=== PATIENT | male | born 1975 | race Caucasian/White ===

== ENCOUNTER 2024-12-21 01:55 | Emergency (ER) | payer MEDICAID, SELFPAY ==
[2024-12-21] VITALS (35 sets, daily range): BP systolic 140–197; BP diastolic 86–132; PULSE 56–89; TEMP 36.5; O2SAT 93–100; BMI 37.2
--- NOTE | 2024-12-21 02:03 | ECG_ITS ---
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 Measurements Intervals [place] Rate: 71 P: 69 [place]: 160 QRS: 78 QRSD: 90 T: 70 QT: 402 QTc: 424 Interpretive Statements 1100 Sinus rhythm 9110 normal ECG No previous ECG available for comparison Electronically Signed On 12-21-2024 6:51:12 EDT by VEL NOVAK M.D.
--- NOTE | 2024-12-21 02:15 | XR_ITS ---
[address] [address] Patient Name: EH WILKINS MRN: [employer]:[id number] date: 1975 Sex: M Assigned Patient Location: ER Current Patient Location: ED.MAIN Accession/Order Number: [id number] Exam Date: 12/21/2024 06:39 Report Date: 12/21/2024 06:41 At the request of: OMEGA ANDERSEN MD Procedure: XR chest 1V Plain film chest Single view HISTORY: Chest pain COMPARISON: None FINDINGS: SUPPORT DEVICES: None POSTSURGICAL CHANGES: None HEART: Borderline cardiomegaly PULMONARY MACO: Mild hilar vascular prominence MEDIASTINUM: Unremarkable LUNGS AND PLEURA: Minor interstitial changes. No pleural effusion or pneumothorax. BONY STRUCTURES: Intact ADDITIONAL FINDINGS None XR/XR chest 1V IMPRESSION: Borderline cardiomegaly and mild hilar prominence. Mild interstitial changes Impression dictated by: Jace Romero M.D. 12/21/2024 6:41 AM Dictation Location: [employer] Electronically authenticated by: [id number] Y Date: 12/21/2024 06:41
[2024-12-21 02:20] LABS: Basophils Absolute Auto 0.1 10^3/uL (0.0-0.1); Basophils Percent Auto 0.5 % (0.2-2.0); Eosinophils Absolute Auto 0.4 10^3/uL (0.0-0.7); Eosinophils Percent Auto 4.3 % (0.9-7.0); Hematocrit 47.8 % (42.0-54.0); Hemoglobin 17.4 g/dL (14.0-18.0); Immature Granulocytes Abs Auto 0.01 10^3/uL (0.00-0.03); Immature Granulocytes Pct Auto 0.1 % (0.0-0.5); Lymphocytes Absolute Auto 4.3 10^3/uL (1.2-3.8); Lymphocytes Percent Auto 43.8 % (20.5-60.0); Mean Corpuscular HGB Conc 36.4 g/dL (29.9-35.2); Mean Corpuscular Hemoglobin 33.8 pg (25.9-34.0); Mean Corpuscular Volume 92.8 fL (80.0-94.0); Mean Platelet Volume 10.1 fL (9.5-13.5); Monocytes Absolute Auto 0.7 10^3/uL (0.3-0.8); Monocytes Percent Auto 6.9 % (1.7-12.0); Neutrophils Absolute Auto 4.4 10^3/uL (1.4-6.5); Neutrophils Percent Auto 44.4 % (43.0-75.0); Platelet Count 204 10^3/uL (150-450); Red Blood Count 5.15 10^6/uL (4.70-6.10); Red Cell Distribution Width 12.5 % (11.0-15.0); White Blood Count 9.8 10^3/uL (4.0-11.0)
--- NOTE | 2024-12-21 02:23 | ED.CHESTPAI1 ---
HPI - Chest Pain General Chief Complaint: Chest Pain Stated Complaint: CHEST PAIN Time Seen by Provider: 12/21/24 02:11 Source: patient Mode of arrival: Wheelchair Limitations: no limitations History of Present Illness HPI narrative: episode of chest pain around 6pm yesterday that resolved spontaneously. Tonight awakened from his sleep with left sided chest pain radiating to his shoulder and upper back. pain associated with nausea. No fever or abdominal pain. Past history of HTN and DVT. States he loss weight and his PCP discontinued his hypertensive medication Related Data Home Medications ?Medication ?Instructions ?Recorded ?Confirmed No Known Home Medications 12/21/24 12/21/24 Allergies Allergy/AdvReac Type Severity Reaction Status Date / Time Sulfa (Sulfonamide Allergy Unknown Verified 12/21/24 02:03 Antibiotics) Review of Systems ROS Status of ROS 10 or more systems reviewed and unremarkable except as noted in history and below Exam Constitutional Vital Signs, click to edit/add: Last Vital Signs Temp 97.7 F 12/21/24 01:59 Pulse 60 12/21/24 07:12 Resp 16 12/21/24 07:12 BP 140/86 12/21/24 07:36 Pulse Ox 95 12/21/24 07:12 O2 Del Method Room Air 12/21/24 01:59 O2 Flow Rate 2 12/21/24 07:12 Common normals: average body habitus, oriented x3, no limitations, healthy appearing, alert and well nourished General appearance: in distress (mild distress. standing at bed side and appears uncomfortable) HENKY Common normals: normocephalic and head/scalp atraumatic Eye Common normals: PERRL and EOMs intact bilaterally Respiratory Common normals: normal respiratory effort, no retractions, no use of accessory muscles and clear to auscultation bilaterally Cardio Common normals: regular rate, regular rhythm, S1 normal heart sound and S2 normal heart sound GI Common normals: Normal to inspection, nondistended, normoactive bowel sounds present, soft to palpation and non-tender Extremity Common normals: normal to inspection and full ROM Neuro Common normals: oriented x3, CN's II-XII intact bilaterally, moves all extremities and no focal motor deficits Psych Appearance: grossly normal Course Vital Signs Vital signs: Vital Signs Temperature 97.7 F 12/21/24 01:59 Pulse Rate 83 12/21/24 01:59 Respiratory Rate 26 H 12/21/24 01:59 Blood Pressure 184/132 H 12/21/24 01:59 Pulse Oximetry 100 12/21/24 01:59 Oxygen Delivery Method Room Air 12/21/24 01:59 Temperature 97.7 F 12/21/24 01:59 Pulse Rate 60 12/21/24 07:12 Respiratory Rate 16 12/21/24 07:12 Blood Pressure 140/86 12/21/24 07:36 Pulse Oximetry 95 12/21/24 07:12 Oxygen Delivery Method Room Air 12/21/24 01:59 Oxygen Delivery Flow Rate 2 12/21/24 07:12 MDM - Chest Pain MDM Narrative Medical decision making narrative: patient presents with recurrence of chest pain. pain woke him out of sleep. Pain left chest into his shoulder and left upper back associated with nausea. EKG normal. Serial troponin with increase in Troponin. d-dimer elevated. CTA pending. Past history of HTN but no longer on medication. BP elevated here. Labetalol ordered patient continues to have discomfort but improved after nitro SL, morphine and valium. Valiun given to help him relax as he insisted on being up and pacing. Discussed with Aircraft Hydraulic Equipment Mechanic at [facility] and patient accepted in transfer Lab Data Labs: Lab Results 12/21/24 12/21/24 12/21/24 Range/Units 02:05 02:08 04:41 WBC 9.8 (4.0-11.0) 10^3/uL RBC 5.15 (4.70-6.10) 10^6/uL Hgb 17.4 (14.0-18.0) g/dL Hct 47.8 (42.0-54.0) % MCV 92.8 (80.0-94.0) fL MCH 33.8 (25.9-34.0) pg MCHC 36.4 H (29.9-35.2) g/dL RDW 12.5 (11.0-15.0) % Plt Count 204 (150-450) 10^3/uL MPV 10.1 (9.5-13.5) fL Neut % (Auto) 44.4 (43.0-75.0) % Lymph % (Auto) 43.8 (20.5-60.0) % [place] % (Auto) 6.9 (1.7-12.0) % Eos % (Auto) 4.3 (0.9-7.0) % Baso % (Auto) 0.5 (0.2-2.0) % Neut # (Auto) 4.4 (1.4-6.5) 10^3/uL Lymph # (Auto) 4.3 H (1.2-3.8) 10^3/uL [place] # (Auto) 0.7 (0.3-0.8) 10^3/uL Eos # (Auto) 0.4 (0.0-0.7) 10^3/uL Baso # (Auto) 0.1 (0.0-0.1) 10^3/uL Abs Immat Gran (auto) 0.01 (0.00-0.03) 10^3/uL Imm/Tot Granulo (auto) 0.1 (0.0-0.5) % PT 11.0 (9.0-11.6) sec INR 1.04 APTT 26.7 (22.3-36.2) sec D-Dimer 1.05 H* (<=0.59) mg/L FEU Sodium 141 (136-145) mmol/L Potassium 3.7 (3.5-5.1) mmol/L Chloride 101 (98-107) mmol/L Carbon Dioxide 28.3 (21.0-32.0) mmol/L Anion Gap 15.4 BUN 19.0 H (7.0-18.0) mg/dL Creatinine 1.26 (0.70-1.30) mg/dL Est GFR ( Amer) >60 (>=60 mL/min/1.73m^2) Est GFR (Non-Af Amer) >60 (>=60 mL/min/1.73m^2) BUN/Creatinine Ratio 15.1 Glucose 145 H (74-106) mg/dL Calcium 9.5 (8.5-10.1) mg/dL Troponin I High Sens 114.5 H* 273.4 H* (4.0-76.1) pg/mL Critical Care Time Critical Care Time Total Critical Care Time: 60 Discharge Plan Discharge Chief Complaint: Chest Pain Clinical Impression: Non-ST elevation AL (NSTEMI), Hypertensive urgency Patient Disposition: [facility] Discharge Location: [facility] Mode of Transportation: EMS Discharge Date/Time: 12/21/24 07:38
[2024-12-21] MEDS: MORPHINE SULFATE 4 MG/ML VIAL IV ×2 (02:24→03:49)
[2024-12-21] MEDS: NITROGLYCERIN 0.4 MG BOTTLE PO ×2 (02:24→03:30)
[2024-12-21 02:40] LABS: Anion Gap 15.4; BUN Creatinine Ratio 15.1; Calcium 9.5 mg/dL (8.5-10.1); Carbon Dioxide 28.3 mmol/L (21.0-32.0); Chloride 101 mmol/L (98-107); Estimated GFR (African America >60 (>=60 mL/min/1.73m^2); Estimated GFR (Non-African Ame >60 (>=60 mL/min/1.73m^2); Glucose 145 mg/dL (74-106); Potassium 3.7 mmol/L (3.5-5.1); Sodium 141 mmol/L (136-145)
[2024-12-21 02:43] LABS: D Dimer 1.05 mg/L FEU (<=0.59); Troponin I High Sensitivity 114.5 pg/mL (4.0-76.1)
[2024-12-21] MEDS: ONDANSETRON PF 4 MG/2 ML VIAL IV (02:49)
--- NOTE | 2024-12-21 02:50 | CT_ITS ---
The [address] [address] Patient Name: EH WILKINS MRN: [id number] date: 1975 Sex: M Assigned Patient Location: ER Current Patient Location: ED.MAIN Accession/Order Number: [id number] Exam Date: 12/21/2024 06:29 Report Date: 12/21/2024 06:36 At the request of: OMEGA ANDERSEN MD Procedure: CT angio chest CTA Chest with PE protocol TECHNIQUE: Axial imaging with 2-D and 3-D reconstruction. 100 cc of Omni 350cc of Isovue-[address] exam was performed using one or more the following dose reduction techniques: Automated exposure control, adjustment of the MA and/or Kv according to patient size, or use of the iterative reconstruction technique. History: Chest pain. Radiation to left arm. COMPARISON: None THYROID: Unremarkable TRACHEA AND BRONCHI: Patent ESOPHAGUS: Unremarkable. HEART: Borderline cardiomegaly. PERICARDIAL EFFUSION: None CORONARY ARTERY CALCIFICATION: Coronary calcification. MEDIASTINUM: No adenopathy. No pneumoperitoneum. No mediastinal hematoma. PULMONARY MACO: Mild hilar vascular prominence. THORACIC AORTA no thoracic aortic aneurysm or dissection. PULMONARY EMBOLUS: None LUNG NODULE None LUNGS: Diffuse groundglass parenchymal densities present. PLEURAL EFFUSION: None PNEUMOTHORAX: No pneumothorax seen. CHEST WALL: No abnormality AXILLA: Unremarkable BONY STRUCTURES thoracic spondylosis. UPPER ABDOMEN: Hepatic steatosis CT/CT angio chest IMPRESSION: No acute pulmonary embolus. The diffuse groundglass parenchymal densities. Consideration for infiltrate/pneumonitis. Borderline cardiomegaly and mild hilar vascular prominence.. Impression dictated by: Jace Romero M.D. 12/21/2024 6:36 AM Dictation Location: [employer] Electronically authenticated by: [id number] Y Date: 12/21/2024 06:36
[2024-12-21] MEDS: DIAZEPAM 10 MG/2 ML SYRINGE 5 MG IV ×2 (03:49→06:50)
[2024-12-21 05:15] LABS: Troponin I High Sensitivity 273.4 pg/mL (4.0-76.1)
[2024-12-21 05:40] LABS: INR 1.04; Partial Thromboplastin Time 26.7 sec (22.3-36.2)
[2024-12-21] MEDS: HEPARIN SODIUM (PORCINE) 5,000 UNIT/ML VIAL 4000 UNIT IV (05:41)
[2024-12-21] MEDS: LABETALOL HCL 20 MG/4 ML SYRINGE IVP (05:41)
[2024-12-21] MEDS: ASPIRIN 81 MG TAB.CHEW 324 MG PO (05:43)
[2024-12-21] MEDS: HEPARIN SODIUM,PORCINE/D5W 25,000 UNIT/500 ML IV.SOLN 20 UNIT IV (05:55)
== END 2024-12-21 07:38 | disposition short-term general hospital (02) ==
PROVIDERS: Emergency Provider Internal Medicine
DX: I21.4 Non-ST elevation (NSTEMI) myocardial infarction (principal); Z86.718 Personal history of other venous thrombosis and embolism; I16.0 Hypertensive urgency
CPT/HCPCS: 36415; 71045; 71275; 80048; 84484; 85025; 85378; 85610; 85730; 93005; 96365; 96366; 96375; 96376; 99285; J1644; J1920; J2270; J2405; J3360; Q9967